=== PATIENT | male | born 1980 | race Caucasian/White ===

== ENCOUNTER → 2017-03-14 | Outpatient (CLI) | payer OTHER ==
[~2017-03-14] MED LIST: CIPRO 500MG TA500 MG PO; FLEXERIL10 M1 PO; FLEXERIL10 MG PO; MEDROL 4MG. DOSE4 MG PO; NOMEDS *; PREDNISONE20 MG PO; SKELAXIN 800MG800 MG PO; TRAMADOL 50MG T50 MG PO; VICODIN 5/500 T1 TAB PO; VOLTAREN75 MG PO; ZYRTEC10 M3 PO
[2017-03-14 14:43] LABS: BUN 13 mg/dL (7-18)
[2017-03-14 14:44] LABS: GFR (ESTIMATED) 111 ML/MIN (>60)
== END ==
LOC: LAB 14:02
PROVIDERS: Family Medicine
DX: Z13.1 Encounter for screening for diabetes mellitus (principal); Z13.220 Encounter for screening for lipoid disorders